=== PATIENT | male | born 1985 | race Two or more races ===

== ENCOUNTER 2018-03-20 16:49 | Emergency (ER) | payer SELFPAY ==
[2018-03-20] MEDS: LIDOCAINE 1% PF 2 ML VIAL. INJ (17:40)
[2018-03-20] MEDS: ACETAMINOPHEN 500 MG TABLET PO (17:46)
[2018-03-20] MEDS: DIPHTH,PERTUSS(ACELL),TET TOX 0.5 ML DISP.SYRIN. VAX IM (17:47)
[2018-03-20] MEDS: cefTRIAXone IM 1 GM VIAL IM (17:47)
== END 2018-03-20 17:56 | disposition home or self-care (01) ==
LOC: ER 17:56
DX: L03.116 Cellulitis of left lower limb (principal); L02.416 Cutaneous abscess of left lower limb
CPT/HCPCS: 90471; 90715; 96372; 99284-25; J0696

== ENCOUNTER 2020-11-05 04:21 | Emergency (ER) | payer SELFPAY ==
[~2020-11-05] VITALS: Ht 177.8 cm; Wt 100.0 kg
[~2020-11-05 04:21] MED LIST: SULF1TAB24 PO
[2020-11-05 04:30] VITALS: BP 134/86
--- NOTE | 2020-11-05 06:13 | PHYS DOC ---
Past Medical History Past Medical History: No Pertinent History (JERO MEI DO) Past Surgical History: No Surgical History (JERO MEI DO) Smoking Status: Never Smoker Alcohol Use: Occasionally Drug Use: None (JERO MEI DO) General Adult EDM: Chief Complaint: FOREIGNBODY EAR HPI: HPI: 35-year-old male presents the ED with complaints of sudden onset foreign body in left ear that woke patient up, is concerned he has a cockroach in his ear. Patient irrigated his ear with water prior to ED arrival. Denies any hearing loss or hearing changes. (JERO MEI DO) Review of Systems: Review of Systems: Constitutional: Denies fever or chills. [] Eyes: Denies change in visual acuity. [] HENT: Denies nasal congestion or sore throat. [] Respiratory: Denies cough or shortness of breath. [] Cardiovascular: Denies chest pain or edema. [] GI: Denies abdominal pain, nausea, vomiting, bloody stools or diarrhea. [] : Denies dysuria. [] Musculoskeletal: Denies back pain or joint pain. [] Integument: Denies rash. [] Neurologic: Denies headache, focal weakness or sensory changes. [] Endocrine: Denies polyuria or polydipsia. [] Lymphatic: Denies swollen glands. [] Psychiatric: Denies depression or anxiety. [] (JERO MEI DO) Heart Score: Risk Factors: Risk Factors: DM, Current or recent (<one month) smoker, HTN, HLP, family history of CAD, obesity. Risk Scores: Score 0 - 3: 2.5% MACE over next 6 weeks - Discharge Home Score 4 - 6: 20.3% MACE over next 6 weeks - Admit for Clinical Observation Score 7 - 10: 72.7% MACE over next 6 weeks - Early Invasive Strategies (JERO MEI DO) Allergies: Allergies: Allergies Coded Allergies Type Severity Reaction Last Updated Verified No Known Drug Allergies 03/20/18 No (JERO MEI DO) Physical Exam: PE: Constitutional: Well developed, well nourished, no acute distress, non-toxic appearance. HENT: Normocephalic, atraumatic, left ear with cerumen covering approximately 80% of ear canal, cannot visualize tympanic membrane, insect over 20% of ear canal w/no cerumen, no movement, no erythema external canal Eyes: EOMI, conjunctiva normal, no discharge. Neck: Normal range of motion, supple, Cardiovascular: S1/2 present, regular rhythm Lungs & Thorax: Speaking in full sentences, bilateral equal chest rise, no tachypnea or increased work of breathing Abdomen: soft, no tenderness, Skin: Warm, dry, no erythema, no rash. [] Extremities: No tenderness, no cyanosis, no lower extremity edema Neurologic: Alert and oriented X 3, normal motor function, normal sensory function, no focal deficits noted. [] Psychologic: Affect normal, judgement normal, mood normal. [] (JERO MEI DO) EKG: EKG: [] (JERO MEI DO) Radiology/Procedures: Radiology/Procedures: [] (JERO MEI DO) Course & Med Decision Making: Course & Med Decision Making Pertinent Labs and Imaging studies reviewed. (See chart for details) Concern for insect in left ear. Lidocaine used for anesthesia. More than an hour of bedside attention by myself and charge nurse. We attempted irrigation with warm water, irrigating using small cannula past insect to expel, alligator forceps, 10 Georgian suction catheter (no graeme catheter) - all attempts have broken up insect with small pieces removed. Insect is closer to the external canal but is unable to be removed. Surprisingly, patient and and tolerated exam very well despite pain (is driving, declined valium/opiod analgesia). Due to shift change patient was signed out to Dr. Valencia for further attempts. (JERO MEI DO) Course & Med Decision Making Accepted patient care at shift change. Still has peripheral foreign body in left ear. Attempted to retrieve with alligator forceps but unable to. Ear canal is very inflamed and injured. Consulted to Dr. 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 Consulted for ENT consult. There ENT doctor Dr. Morrow said he was see the patient for $100 at the [facility]. Discussed this option with patient and he agrees to plan. Patient sent with antibiotic eardrops. (RIKI VALENCIA MD) Ángel Disclaimer: Ángel Disclaimer: This electronic medical record was generated, in whole or in part, using a voice recognition dictation system. (JERO MEI DO) Departure Departure Impression: Primary Impression: Foreign body of ear, left Disposition: 01 DC HOME SELF CARE/HOMELESS Condition: STABLE Referrals: NO PCP (PCP) Patient Instructions: Ear Foreign Body Additional Instructions: Go to [facility], opens at 9 AM Address: [address], [place] [address] Morrow Instructions for eardrops: 4 drops in left ear 3 times a day for 1 week JERO MEI DO Nov 05, 2020 06:13 RIKI VALENCIA MD Nov 05, 2020 07:46
[2020-11-05] MEDS ORDERED: NEOMYCIN/POLYMYXIN/HC OTIC SUSPENSION 10ML BOTTLE. AS ONE (07:00)
== END 2020-11-05 08:45 | disposition home or self-care (01) ==
LOC: ER 04:21
DX: T16.2XXA Foreign body in left ear, initial encounter (principal); W45.8XXA Other foreign body or object entering through skin, initial encounter; Y93.89 Activity, other specified; Y92.89 Other specified places as the place of occurrence of the external cause; Y99.8 Other external cause status
CPT/HCPCS: 69200; 99284